=== PATIENT | male | born 1965 | race American Indian/Alaskan Native ===

== ENCOUNTER 2016-10-14 09:41 | Emergency (ER) | payer OTHER ==
[2016-10-14 09:56] VITALS: BP 164/96
--- NOTE | 2016-10-14 10:28 | Emergency Department Report ---
Minor Respiratory - HPI Chief Complaint: Upper Respiratory Infection Stated Complaint: FLU SYMPTOMS Time Seen by Provider: 10/14/16 10:21 Duration: 1 week Severity: moderate Minor Respiratory: Yes Rhinorrhea, Yes Able to Tolerate Fluids, Yes Cough, Yes Sick Contacts, Yes Fever (low grade), No Sore Throat, No Ear Pain, No Hemoptysis , No Chest Pain, No Shortness of Breath Other History: Pt reports cough, congestion x 1 week with low grade fever. No SOB. ED Review of Systems ROS: Stated complaint: FLU SYMPTOMS Other details as noted in HPI Comment: All other systems reviewed and negative Constitutional: denies: chills, fever Eyes: denies: eye pain, eye discharge, vision change ENT: congestion. denies: ear pain, throat pain Respiratory: cough. denies: shortness of breath, wheezing Cardiovascular: denies: chest pain, palpitations Endocrine: no symptoms reported Gastrointestinal: denies: abdominal pain, nausea, diarrhea Genitourinary: denies: urgency, dysuria Musculoskeletal: denies: back pain, joint swelling, arthralgia Skin: denies: rash, lesions Neurological: denies: headache, weakness, paresthesias Psychiatric: denies: anxiety, depression Hematological/Lymphatic: denies: easy bleeding, easy bruising ED Past Medical Hx - Past Medical History Previous Medical History?: No - Surgical History Past Surgical History?: No - Social History Smoking Status: Never Smoker Substance Use Type: Alcohol, Non Opiate Pain, Other - Medications Home Medications: Home Medications Medication Instructions Recorded Confirmed Last Taken Type EPINEPHrine [Epipen 2-Trent] 0.3 mg IM ONCE PRN #2 ml 02/21/16 Unknown Rx Azithromycin [Zithromax] 250 mg PO DAILY #6 tablet 10/14/16 Unknown Rx Guaifenesin/Codeine Phosphate 5 - 10 ml PO Q6HR PRN #120 ml 10/14/16 Unknown Rx [Guaifenesin-Codeine Liquid] predniSONE [Deltasone] 40 mg PO QDAY #10 tab 10/14/16 Unknown Rx Minor Respiratory Exam - Exam General: Vital signs noted. No distress. Alert and acting appropriately. HEENT: Yes Moist Mucous Membranes, No Pharyngeal Erythema, No Pharyngeal Exudates, No Rhinorrhea, No Conjuctival Injection, No Frontal Tenderness, No Maxillary Tenderness Ear: Neither TM Bulge, Neither TM Erythema, Neither EAC Pain, Neither EAC Discharge Neck: Yes Supple, No Adenopathy Lungs: Yes Good Air Exchange, Yes Cough, No Wheezes, No Ronchi, No Stridor, No Labored Respirations, No Retractions, No Use of Accessory Muscles, No Other Abnormal Lung Sounds Heart: Yes Regular, No Murmur Abdomen: Yes Normal Bowel Sounds, No Tenderness, No Peritoneal Signs Skin: No Rash, No Edema Neurologic: Alert and oriented, no deficits. Musculoskeletal: Unremarkable. ED Course Vital Signs 10/14/16 09:53 Temperature 97.9 F Pulse Rate 82 Respiratory 18 Rate Blood Pressure 164/96 O2 Sat by Pulse 100 Oximetry - Reevaluation(s) Reevaluation #1: 10/14/16 10:25 NAD, stable for d/c. ED Medical Decision Making - Medical Decision Making Advise follow up in 3-5 days. Supportive care discussed. - Differential Diagnosis URI, PNA Critical care attestation.: If time is entered above; I have spent that time in minutes in the direct care of this critically ill patient, excluding procedure time. ED Disposition Clinical Impression: Respiratory tract infection Disposition: DISCHARGED TO HOME OR SELFCARE Is pt being admited?: No Condition: Good Instructions: Upper Respiratory Infection (ED) Prescriptions: Azithromycin [Zithromax] 250 mg PO DAILY #6 tablet Guaifenesin/Codeine Phosphate [Guaifenesin-Codeine Liquid] 5 - 10 ml PO Q6HR PRN #120 ml PRN Reason: Cough predniSONE [Deltasone] 40 mg PO QDAY #10 tab Referrals: PRIMARY CARE, [Primary Care Provider] - 3-5 Days Time of Disposition: 10:27
== END 2016-10-14 11:20 | disposition home or self-care (01) ==
LOC: ED 09:41
DX: J06.9 Acute upper respiratory infection, unspecified (principal)
CPT/HCPCS: 99281

== ENCOUNTER 2017-04-20 08:58 | Emergency (ER) | payer OTHER ==
[2017-04-20] MEDS ORDERED: DELTASONE PO ONE (11:47)
--- NOTE | 2017-04-20 11:52 | Emergency Department Report ---
HPI - General Chief Complaint: Allergic Reaction Time Seen by Provider: 04/20/17 11:32 ED Past Medical Hx - Past Medical History Previous Medical History?: No - Surgical History Additional Surgical History: Sinus surgery - Social History Smoking Status: Never Smoker Substance Use Type: Alcohol - Medications Home Medications: Home Medications Medication Instructions Recorded Confirmed Last Taken Type EPINEPHrine [Epipen 2-Trent] 0.3 mg IM ONCE PRN #2 ml 02/21/16 Unknown Rx Azithromycin [Zithromax] 250 mg PO DAILY #6 tablet 10/14/16 Unknown Rx Guaifenesin/Codeine Phosphate 5 - 10 ml PO Q6HR PRN #120 ml 10/14/16 Unknown Rx [Guaifenesin-Codeine Liquid] predniSONE [Deltasone] 40 mg PO QDAY #10 tab 10/14/16 Unknown Rx ED Review of Systems ROS: Stated complaint: ALLERGIC REACTION Other details as noted in HPI Physical Exam - Physical Exam Vital Signs: Vital Signs 04/20/17 09:10 Temperature 98.6 F Pulse Rate 75 Respiratory 16 Rate Blood Pressure 165/101 O2 Sat by Pulse 98 Oximetry ED Course Vital Signs 04/20/17 09:10 Temperature 98.6 F Pulse Rate 75 Respiratory 16 Rate Blood Pressure 165/101 O2 Sat by Pulse 98 Oximetry Critical care attestation.: If time is entered above; I have spent that time in minutes in the direct care of this critically ill patient, excluding procedure time. ED Disposition Condition: Stable Referrals: PRIMARY CARE, [Primary Care Provider] - 3-5 Days
[2017-04-20 12:45] VITALS: BP 147/90
--- NOTE | 2017-04-20 16:05 | Emergency Department Report ---
Entered by KIARA HAMILTON, acting as scribe for YARA WHITE PA. ED Allergic Reaction HPI - General Chief complaint: Allergic Reaction Stated complaint: ALLERGIC REACTION Time Seen by Provider: 04/20/17 11:32 Source: patient Mode of arrival: Ambulatory Limitations: No Limitations - History of Present Illness Initial Comments: 51 y/o male with no significant PMHx presents to the ED c/o an allergic reaction that began 1 day ago. Patient states began to have an allergic reaction yesterday after eating brazil nuts. In the ED, patient reports hives to face with associated itching and throat itching, but he denies facial swelling, throat closing sensation, chest pain, SOB, fever, chills, nausea, and vomiting. Took Benadryl last night with some relief. Patient states he last had an allergic reaction with associated facial and lip swelling 10 years ago secondary to drinking a coconut flavored beverage. NKDA. [place] Complaint: allergic reaction, hives Onset/Timin -: days(s) Symptoms: rash (hives), itching. denies: facial swelling, lip swelling, difficulty swallowing, difficulty breathing, orolingual swelling, hoarseness, syncopy, dizziness, nausea, vomiting, other, abdominal pain Severity: mild Treatment Prior to Arrival: benadryl Previous Allergy History: none - Related Data Previous Rx's Medication Instructions Recorded Last Taken Type EPINEPHrine [Epipen 2-Trent] 0.3 mg IM ONCE PRN #2 ml 02/21/16 Unknown Rx Azithromycin [Zithromax] 250 mg PO DAILY #6 tablet 10/14/16 Unknown Rx Guaifenesin/Codeine Phosphate 5 - 10 ml PO Q6HR PRN #120 ml 10/14/16 Unknown Rx [Guaifenesin-Codeine Liquid] predniSONE [Deltasone] 40 mg PO QDAY #10 tab 10/14/16 Unknown Rx EPINEPHrine (NF) [Epipen (Nf)] 0.3 mg IM ONCE PRN #1 syringekit 04/20/17 Unknown Rx Famotidine [Pepcid] 20 mg PO BID PRN #14 tablet 04/20/17 Unknown Rx Hydroxyzine HCl 25 mg PO Q8H PRN #15 tablet 04/20/17 Unknown Rx Loratadine [Claritin] 10 mg PO DAILY #14 tablet 04/20/17 Unknown Rx predniSONE [Deltasone] 40 mg PO QDAY #10 tab 04/20/17 Unknown Rx Allergies Allergy/AdvReac Type Severity Reaction Status Date / Time No Known Allergies Allergy Unverified 08/29/14 00:56 ED Review of Systems Comment: All other systems reviewed and negative Constitutional: denies: chills, fever Eyes: denies: eye pain, eye discharge, vision change ENT: denies: ear pain, throat pain Respiratory: denies: cough, orthopnea, shortness of breath, SOB with exertion, SOB at rest, stridor, wheezing Cardiovascular: denies: chest pain, palpitations, dyspnea on exertion, orthopnea , edema, syncope, paroxysmal nocturnal dyspnea Endocrine: no symptoms reported Gastrointestinal: denies: abdominal pain, nausea, vomiting, diarrhea Genitourinary: denies: urgency, dysuria Musculoskeletal: denies: back pain, joint swelling, arthralgia Skin: rash (hives). denies: lesions Neurological: denies: headache, weakness, numbness, paresthesias, confusion Psychiatric: denies: anxiety, depression Hematological/Lymphatic: denies: easy bleeding, easy bruising ED Past Medical Hx - Past Medical History Previous Medical History?: No - Surgical History Past Surgical History?: Yes Additional Surgical History: Sinus surgery - Family History Family history: no significant - Social History Smoking Status: Never Smoker Substance Use Type: Alcohol - Medications Home Medications: Home Medications Medication Instructions Recorded Confirmed Last Taken Type EPINEPHrine [Epipen 2-Trent] 0.3 mg IM ONCE PRN #2 ml 02/21/16 Unknown Rx Azithromycin [Zithromax] 250 mg PO DAILY #6 tablet 10/14/16 Unknown Rx Guaifenesin/Codeine Phosphate 5 - 10 ml PO Q6HR PRN #120 ml 10/14/16 Unknown Rx [Guaifenesin-Codeine Liquid] predniSONE [Deltasone] 40 mg PO QDAY #10 tab 10/14/16 Unknown Rx EPINEPHrine (NF) [Epipen (Nf)] 0.3 mg IM ONCE PRN #1 syringekit 04/20/17 Unknown Rx Famotidine [Pepcid] 20 mg PO BID PRN #14 tablet 04/20/17 Unknown Rx Hydroxyzine HCl 25 mg PO Q8H PRN #15 tablet 04/20/17 Unknown Rx Loratadine [Claritin] 10 mg PO DAILY #14 tablet 04/20/17 Unknown Rx predniSONE [Deltasone] 40 mg PO QDAY #10 tab 04/20/17 Unknown Rx ED Physical Exam - General Limitations: No Limitations General appearance: alert, in no apparent distress - Head Head exam: Present: atraumatic, normocephalic - Eye Eye exam: Present: normal appearance, PERRL, EOMI. Absent: scleral icterus, conjunctival injection, nystagmus, periorbital swelling, periorbital tenderness Pupils: Present: normal accommodation - ENT ENT exam: Present: normal exam, normal orophraynx, mucous membranes moist, TM's normal bilaterally, normal external ear exam - Expanded ENT Exam Expanded Ear exam: Present: normal external inspection Mouth exam: Present: normal external inspection, tongue normal. Absent: drooling, trismus, muffled voice, tongue elevation, laceration Teeth exam: Present: normal inspection Throat exam: Positive: normal inspection. Negative: tonsillar erythema, tonsillomegaly, tonsillar exudate, R peritonsillar mass, L peritonsillar mass - Neck Neck exam: Present: normal inspection, full ROM. Absent: tenderness, meningismus, lymphadenopathy, thyromegaly - Respiratory Respiratory exam: Present: normal lung sounds bilaterally. Absent: respiratory distress, wheezes, rales, rhonchi, stridor, accessory muscle use, decreased breath sounds - Cardiovascular Cardiovascular Exam: Present: regular rate, normal rhythm, normal heart sounds. Absent: systolic murmur, diastolic murmur, rubs, gallop - GI/Abdominal GI/Abdominal exam: Present: soft, normal bowel sounds. Absent: distended - Extremities Exam Extremities exam: Present: normal inspection, full ROM, normal capillary refill - Back Exam Back exam: Present: normal inspection, full ROM - Neurological Exam Neurological exam: Present: alert, oriented X3, normal gait - Psychiatric Psychiatric exam: Present: normal affect, normal mood - Skin Skin exam: Present: warm, dry, intact, rash (hives present to face) ED Course Vital Signs 04/20/17 04/20/17 04/20/17 09:10 12:08 12:45 Temperature 98.6 F Pulse Rate 75 74 Respiratory 16 16 Rate Blood Pressure 165/101 168/105 147/90 O2 Sat by Pulse 98 100 Oximetry ED Medical Decision Making - Medical Decision Making A/P: Facial urticaria 1-no oropharyngeal involvement patient has no signs of angioedema. Has had hives since yesterday morning 2-antihistamines, prednisone, EpiPen when necessary patient advised to return to the ED for any shortness of breath wheezing stridor facial tongue or lip swelling 3-f/u w/ primary care ED Disposition Clinical Impression: Urticaria Disposition: TO HOME OR SELFCARE Is pt being admited?: No Does the pt Need Aspirin: No Condition: Stable Instructions: Urticaria (ED) Prescriptions: EPINEPHrine (NF) [Epipen (Nf)] 0.3 mg IM ONCE PRN #1 syringekit PRN Reason: Anaphylaxis Famotidine [Pepcid] 20 mg PO BID PRN #14 tablet PRN Reason: Itching Hydroxyzine HCl 25 mg PO Q8H PRN #15 tablet PRN Reason: Itching Loratadine [Claritin] 10 mg PO DAILY #14 tablet predniSONE [Deltasone] 40 mg PO QDAY #10 tab Referrals: [facility] [Provider Group] - 3-5 Days [facility] [Outside[facility] - 3-5 Days Forms: Work/School Release Form(ED) Time of Disposition: 16:03 This documentation as recorded by the ALFONSO leos JASMINE,accurately reflects the service I personally performed and the decisions made by ,YARA WHITE PA.
== END 2017-04-20 12:51 | disposition home or self-care (01) ==
LOC: ED 08:58
DX: L50.9 Urticaria, unspecified (principal); Y92.9 Unspecified place or not applicable
CPT/HCPCS: 99282; J7512

== ENCOUNTER 2018-10-14 06:16 | Emergency (ER) | payer OTHER ==
[2018-10-14 06:30] VITALS: BP 156/108
[2018-10-14] MEDS ORDERED: DECADRON IM ONE (07:11)
--- NOTE | 2018-10-14 07:17 | Emergency Department Report ---
Minor Respiratory - HPI Chief Complaint: Upper Respiratory Infection Stated Complaint: CONGESTION Time Seen by Provider: 10/14/18 07:11 Duration: 2 Days Pain Location: Other (SINUS) Severity: mild Minor Respiratory: Yes Rhinorrhea, Yes Able to Tolerate Fluids, No Sore Throat, No Ear Pain, No Cough, No Sick Contacts, No Hemoptysis, No Chest Pain, No Shortness of Breath, No Fever Other History: PT IS A 53 YO MALE WHO COMES IN WITH NASAL CONGESTION. HE STATES HE CAN NOT BREATH. HE HAS A LONG STANDING HX OF SINUS PROBLEMS. HE HAS TRIED OVER THE COUNTER MEDS AND THEY HAVE NOT WORKED. ED Review of Systems ROS: Stated complaint: CONGESTION Other details as noted in HPI Comment: All other systems reviewed and negative Constitutional: denies: chills, fever, malaise Eyes: denies: eye pain, eye discharge, vision change ENT: as per HPI, congestion. denies: ear pain, throat pain, dental pain, hearing loss, epistaxis Respiratory: denies: cough Cardiovascular: denies: chest pain Endocrine: denies: intolerance to cold Gastrointestinal: denies: nausea Genitourinary: denies: urgency Musculoskeletal: denies: back pain Skin: denies: lesions Neurological: denies: headache Psychiatric: denies: anxiety Hematological/Lymphatic: denies: easy bleeding ED Past Medical Hx - Past Medical History Previous Medical History?: No - Surgical History Additional Surgical History: Sinus surgery - Social History Smoking Status: Never Smoker Substance Use Type: None - Medications Home Medications: Home Medications Medication Instructions Recorded Confirmed Last Taken Type Azithromycin [Zithromax Z-GURMEET] 250 mg PO DAILY #6 tablet 10/14/18 Unknown Rx Fluticasone [Flonase] 1 spray NS QDAY #1 bottle 10/14/18 Unknown Rx predniSONE [Deltasone] 20 mg PO DAILY #5 tablet 10/14/18 Unknown Rx Minor Respiratory Exam - Exam General: Vital signs noted. No distress. Alert and acting appropriately. HEENT: Yes Moist Mucous Membranes, Yes Rhinorrhea, No Pharyngeal Erythema, No Pharyngeal Exudates, No Conjuctival Injection, No Frontal Tenderness, No Maxil edd Tenderness Ear: Neither TM Bulge, Neither TM Erythema, Neither EAC Pain, Neither EAC Discharge Neck: Yes Supple, No Adenopathy Lungs: Yes Good Air Exchange, No Wheezes, No Ronchi, No Stridor, No Cough, No Labored Respirations, No Retractions, No Use of Accessory Muscles, No Other Abnormal Lung Sounds Heart: Yes Regular, No Murmur Abdomen: Yes Normal Bowel Sounds, No Tenderness, No Peritoneal Signs Skin: No Rash, No Edema Neurologic: Alert and oriented, no deficits. Musculoskeletal: Unremarkable. ED Course Vital Signs 10/14/18 06:25 Temperature 97.6 F Pulse Rate 83 Respiratory 20 Rate Blood Pressure 156/108 O2 Sat by Pulse 99 Oximetry ED Medical Decision Making - Medical Decision Making SIMPLE URTI NO HX HTN TAKING OTC MEDS FOR SINUS NO CP NO SOB NON TOXIC DC HOME W DC POC Critical care attestation.: If time is entered above; I have spent that time in minutes in the direct care of this critically ill patient, excluding procedure time. ED Disposition Clinical Impression: Sinusitis, Elevated blood pressure reading Disposition: DC-01 TO HOME OR SELFCARE Is pt being admited?: No Does the pt Need Aspirin: No Condition: Stable Instructions: Sinusitis (ED) Additional Instructions: HYDRATE WELL WITH WATER MEDS ORDERED DIET AND ACTIVITY TOLERATED FOLLOW UP ENT IF PERSISTS MONITOR YOUR BLOOD PRESSURE- IT WAS ELEVATED TODAY FOLLOW UP WITH PCP IF PERSISTS USE ONLY OVER THE COUNTER MEDS THAT ARE FOR PEOPLE WITH HIGH BLOOD PRESSURE Prescriptions: Azithromycin [Zithromax Z-GURMEET] 250 mg PO DAILY #6 tablet Fluticasone [Flonase] 1 spray NS QDAY #1 bottle predniSONE [Deltasone] 20 mg PO DAILY #5 tablet Referrals: SATYA COY MD [Primary Care Provider] - 3-5 Days Time of Disposition: 07:14
== END 2018-10-14 07:25 | disposition home or self-care (01) ==
LOC: ED 06:16
DX: J32.9 Chronic sinusitis, unspecified (principal); R03.0 Elevated blood-pressure reading, without diagnosis of hypertension
CPT/HCPCS: 96372; 99282; J1100

== ENCOUNTER 2019-02-16 05:42 | Emergency (ER) | payer OTHER ==
[2019-02-16 06:12] VITALS: BP 165/96
[2019-02-16] MEDS ORDERED: DECADRON IM ONE (07:18)
[2019-02-16] MEDS ORDERED: IBUPROFEN PO ONE (07:18)
--- NOTE | 2019-02-16 07:20 | Emergency Department Report ---
Minor Respiratory - HPI Chief Complaint: Upper Respiratory Infection Stated Complaint: SINUS INFECTION Time Seen by Provider: 02/16/19 07:03 Duration: 3 Days Pain Location: Nose Severity: severe Minor Respiratory: Yes Rhinorrhea, Yes Able to Tolerate Fluids, No Sore Throat, No Ear Pain, No Cough, No Sick Contacts, No Hemoptysis, No Chest Pain, No Shortness of Breath, No Fever Other History: 53-year-old -British male complains of stuffy nose and nasal congestion and headache 3 days. Patient reports he has a past medical history of chronic sinusitis and recently had surgery for sinus phase 2 years ago. Patient reports at that time they removed several polyps. Patient reports is up-to-date on all vaccines. Patient reports he has ran out of his Flonase. Patient reports that steroids usually helps with his condition. Patient denies any fever chills no nausea no vomiting. Patient has no other complaints besides a frontal headache. Patient has no known drug allergies currently takes no medications on a daily basis. ED Review of Systems ROS: Stated complaint: SINUS INFECTION Other details as noted in HPI Comment: All other systems reviewed and negative ENT: congestion Neurological: headache ED Past Medical Hx - Past Medical History Previous Medical History?: Yes Additional medical history: chronic sinus - Surgical History Past Surgical History?: Yes Additional Surgical History: Sinus surgery, - Social History Smoking Status: Never Smoker Substance Use Type: None - Medications Home Medications: Home Medications Medication Instructions Recorded Confirmed Last Taken Type Azithromycin [Zithromax Z-GURMEET] 250 mg PO DAILY #6 tablet 02/16/19 Unknown Rx Fluticasone [Flonase] 1 spray NS QDAY #1 bottle 02/16/19 Unknown Rx predniSONE [Deltasone] 20 mg PO DAILY #5 tablet 02/16/19 Unknown Rx Minor Respiratory Exam - Exam General: Vital signs noted. No distress. Alert and acting appropriately. HEENT: Yes Moist Mucous Membranes, Yes Frontal Tenderness, Yes Maxillary Tenderness, No Rhinorrhea Ear: Neither TM Bulge, Neither TM Erythema, Neither EAC Pain, Neither EAC Discharge Neck: Yes Supple, No Adenopathy Lungs: Yes Good Air Exchange, No Wheezes, No Ronchi, No Stridor, No Cough, No Labored Respirations, No Retractions, No Use of Accessory Muscles, No Other Abnormal Lung Sounds Heart: Yes Regular, No Murmur Skin: No Rash, No Edema Neurologic: Alert and oriented, no deficits. Musculoskeletal: Unremarkable. ED Course Vital Signs 02/16/19 06:11 Temperature 98.9 F Pulse Rate 86 Respiratory 20 Rate Blood Pressure 165/96 [Right] O2 Sat by Pulse 98 Oximetry ED Medical Decision Making - Medical Decision Making 53-year-old male comes in for sinusitis complaints. Patient be given dexamethasone 10 mg IM and ibuprofen 800 mg by mouth. Patient be discharged home on prednisone 20 mg daily for 5 days as well as a prescription for Flonase and azithromycin. Critical care attestation.: If time is entered above; I have spent that time in minutes in the direct care of this critically ill patient, excluding procedure time. ED Disposition Clinical Impression: Sinusitis chronic, frontal Disposition: DC-01 TO HOME OR SELFCARE Is pt being admited?: No Does the pt Need Aspirin: No Condition: Stable Instructions: Sinusitis (ED) Additional Instructions: Complete medications as prescribed. Follow-up with her primary care provider if his symptoms persist or gets worse. Prescriptions: predniSONE [Deltasone] 20 mg PO DAILY #5 tablet Fluticasone [Flonase] 1 spray NS QDAY #1 bottle Azithromycin [Zithromax Z-GURMEET] 250 mg PO DAILY #6 tablet Referrals: [facility] [Outside] - 3-5 Days
== END 2019-02-16 07:48 | disposition home or self-care (01) ==
LOC: ED 05:42
DX: J32.1 Chronic frontal sinusitis (principal); Z98.890 Other specified postprocedural states; Z79.899 Other long term (current) drug therapy
CPT/HCPCS: 96372; 99282; J1100

== ENCOUNTER 2019-04-18 07:38 | Emergency (ER) | payer SELFPAY ==
[2019-04-18 07:43] VITALS: BP 120/90
[2019-04-18] MEDS ORDERED: DELTASONE PO ONE (08:23)
--- NOTE | 2019-04-18 08:32 | Emergency Department Report ---
ED General Adult HPI - General Chief complaint: Allergic Reaction Stated complaint: ALLERGIC REACTION Time Seen by Provider: 04/18/19 08:10 Source: patient Mode of arrival: Ambulatory Limitations: No Limitations - History of Present Illness Initial comments: Patient presents to the emergency department with a chief complaint of a rash to left side of his face after eating walnuts this morning at 5 AM. Patient denies any difficulty breathing or shortness of breath. Patient also denies any initial swallowing or eating or drinking. -: Sudden Location: face Severity scale (0 -10): 0 Improves with: none Worsens with: none Associated Symptoms: denies other symptoms Treatments Prior to Arrival: none - Related Data Previous Rx's Medication Instructions Recorded Last Taken Type Azithromycin [Zithromax Z-GURMEET] 250 mg PO DAILY #6 tablet 02/16/19 Unknown Rx Fluticasone [Flonase] 1 spray NS QDAY #1 bottle 02/16/19 Unknown Rx predniSONE [Deltasone] 20 mg PO DAILY #5 tablet 02/16/19 Unknown Rx predniSONE [Deltasone] 20 mg PO DAILY #15 tablet 04/18/19 Unknown Rx Allergies Allergy/AdvReac Type Severity Reaction Status Date / Time No Known Allergies Allergy Unverified 08/29/14 00:56 ED Review of Systems ROS: Stated complaint: ALLERGIC REACTION Other details as noted in HPI Comment: All other systems reviewed and negative Constitutional: denies: chills, fever Eyes: denies: eye pain, eye discharge, vision change ENT: denies: ear pain, throat pain Respiratory: denies: cough, shortness of breath, wheezing Cardiovascular: denies: chest pain, palpitations Endocrine: no symptoms reported Gastrointestinal: denies: abdominal pain, nausea, diarrhea Genitourinary: denies: urgency, dysuria Musculoskeletal: denies: back pain, joint swelling, arthralgia Skin: denies: rash, lesions Neurological: denies: headache, weakness, paresthesias Psychiatric: denies: anxiety, depression Hematological/Lymphatic: denies: easy bleeding, easy bruising ED Past Medical Hx - Past Medical History Previous Medical History?: Yes Additional medical history: chronic sinus - Surgical History Past Surgical History?: Yes Additional Surgical History: Sinus surgery, - Social History Smoking Status: Never Smoker Substance Use Type: Alcohol - Medications Home Medications: Home Medications Medication Instructions Recorded Confirmed Last Taken Type Azithromycin [Zithromax Z-GURMEET] 250 mg PO DAILY #6 tablet 02/16/19 Unknown Rx Fluticasone [Flonase] 1 spray NS QDAY #1 bottle 02/16/19 Unknown Rx predniSONE [Deltasone] 20 mg PO DAILY #5 tablet 02/16/19 Unknown Rx predniSONE [Deltasone] 20 mg PO DAILY #15 tablet 04/18/19 Unknown Rx ED Physical Exam - General Limitations: No Limitations General appearance: alert, in no apparent distress - Head Head exam: Present: atraumatic, normocephalic, other (patient does have erythema and a rash consistent urticaria of the face on the left side) - Eye Eye exam: Present: normal appearance - ENT ENT exam: Present: mucous membranes moist, other (there is no intraoral swelling or inflammation) - Neck Neck exam: Present: normal inspection - Respiratory Respiratory exam: Present: normal lung sounds bilaterally. Absent: respiratory distress - Cardiovascular Cardiovascular Exam: Present: regular rate, normal rhythm. Absent: systolic murmur, diastolic murmur, rubs, gallop - GI/Abdominal GI/Abdominal exam: Present: soft, normal bowel sounds - Rectal Rectal exam: Present: deferred - Extremities Exam Extremities exam: Present: normal inspection - Back Exam Back exam: Present: normal inspection - Neurological Exam Neurological exam: Present: alert, oriented X3, CN II-XII intact. Absent: motor sensory deficit - Psychiatric Psychiatric exam: Present: normal affect, normal mood - Skin Skin exam: Present: warm, dry, intact, normal color. Absent: rash ED Course Vital Signs 04/18/19 07:40 Temperature 98.0 F Pulse Rate 76 Respiratory 16 Rate Blood Pressure 120/90 O2 Sat by Pulse 97 Oximetry Critical care attestation.: If time is entered above; I have spent that time in minutes in the direct care of this critically ill patient, excluding procedure time. ED Disposition Clinical Impression: Allergic reaction Disposition: DC- TO HOME OR SELFCARE Is pt being admited?: No Does the pt Need Aspirin: No Condition: Stable Instructions: Allergies (ED), Food Allergy (ED) Additional Instructions: return if worse Referrals: [facility] [Other] - 3-5 Days [facility], [Provider Group] - 3-5 Days [facility] [Provider Group] - 3-5 Days Time of Disposition: 08:32
== END 2019-04-18 08:46 | disposition home or self-care (01) ==
LOC: ED 07:38
DX: T78.1XXA Other adverse food reactions, not elsewhere classified, initial encounter (principal); Z98.890 Other specified postprocedural states; Z79.899 Other long term (current) drug therapy; X58.XXXA Exposure to other specified factors, initial encounter; Y93.89 Activity, other specified; Y92.89 Other specified places as the place of occurrence of the external cause; Y99.8 Other external cause status
CPT/HCPCS: 99282; J7512

== ENCOUNTER 2019-06-20 01:09 | Emergency (ER) | payer SELFPAY ==
[2019-06-20 01:24] VITALS: BP 155/92
== END 2019-06-20 05:15 | disposition left against medical advice (07) ==
LOC: ED 01:09
DX: R22.1 Localized swelling, mass and lump, neck (principal); Z53.21 Procedure and treatment not carried out due to patient leaving prior to being seen by health care provider

== ENCOUNTER 2020-05-19 15:13 | Emergency (ER) | payer SELFPAY ==
[2020-05-19 15:30] VITALS: BP 191/106
[2020-05-19] MEDS ORDERED: dexAMETHasone 20 MG/5 ML VIAL IM ONE (17:57)
--- NOTE | 2020-05-19 18:02 | Emergency Department Report ---
- General Chief Complaint: Upper Respiratory Infection Stated Complaint: COUGH/RHINITIS Time Seen by Provider: 05/19/20 17:57 Source: patient Mode of arrival: Ambulatory Limitations: No Limitations - History of Present Illness Initial Comments: 54-year-old -Maldivian male presents to the emergency room reporting that he has allergic rhinitis. Patient states he is tried [id number] Zyrtec's and cold medicine but only thing that works is a dose of prednisone. Patient denies any fever chills no chest pain no nausea no vomiting no ear drainage no ear pain no eye drainage. [facility] . MD Complaint: rhinorrhea, nasal congestion, other (Has post nasal drip) Onset/Timin -: days(s) Severity scale (0 -10): 5 Consistency: constant Improves With: nothing Worsens With: nothing Context: other (Change of seasons) Associated Symptoms: rhinorrhea, nasal congestion, cough. denies: fever, chills, myalgias, diaphoresis, headache, sore throat, chest pain, shortness of breath, abdominal pain, nausea, vomiting, diarrhea, weight loss, epistaxis, hoarseness, ear pain - Related Data Previous Rx's Medication Instructions Recorded Last Taken Type Azithromycin [Zithromax Z-GURMEET] 250 mg PO DAILY #6 tablet 02/16/19 Unknown Rx Fluticasone [Flonase] 1 spray NS QDAY #1 bottle 02/16/19 Unknown Rx predniSONE [Deltasone] 20 mg PO DAILY #5 tablet 02/16/19 Unknown Rx predniSONE [Deltasone] 20 mg PO DAILY #15 tablet 04/18/19 Unknown Rx Ibuprofen [Motrin 800 MG tab] 800 mg PO Q8HR PRN #21 tablet 02/05/20 Unknown Rx methOCARBAMOL [Robaxin TAB] 1,500 mg PO TID PRN #30 tab 02/05/20 Unknown Rx Allergies Allergy/AdvReac Type Severity Reaction Status Date / Time peanut Allergy Rash Verified 06/20/19 01:23 ED Review of Systems ROS: Stated complaint: COUGH/RHINITIS Other details as noted in HPI Comment: All other systems reviewed and negative ED Past Medical Hx - Past Medical History Previous Medical History?: No Additional medical history: chronic sinus - Surgical History Past Surgical History?: Yes Additional Surgical History: Sinus surgery, poylps removed - Social History Smoking Status: Never Smoker Substance Use Type: None - Medications Home Medications: Home Medications Medication Instructions Recorded Confirmed Last Taken Type Azithromycin [Zithromax Z-GURMEET] 250 mg PO DAILY #6 tablet 02/16/19 Unknown Rx Fluticasone [Flonase] 1 spray NS QDAY #1 bottle 02/16/19 Unknown Rx predniSONE [Deltasone] 20 mg PO DAILY #5 tablet 02/16/19 Unknown Rx predniSONE [Deltasone] 20 mg PO DAILY #15 tablet 04/18/19 Unknown Rx Ibuprofen [Motrin 800 MG tab] 800 mg PO Q8HR PRN #21 tablet 02/05/20 Unknown Rx methOCARBAMOL [Robaxin TAB] 1,500 mg PO TID PRN #30 tab 02/05/20 Unknown Rx ED Physical Exam - General Limitations: No Limitations General appearance: alert, in no apparent distress - Head Head exam: Present: atraumatic, normocephalic - Eye Eye exam: Present: normal appearance - ENT ENT exam: Present: mucous membranes moist, other (Bilateral nare has hypertrophic turbinates) - Neck Neck exam: Present: normal inspection - Respiratory Respiratory exam: Present: normal lung sounds bilaterally. Absent: respiratory distress - Cardiovascular Cardiovascular Exam: Present: regular rate, normal rhythm. Absent: systolic murmur, diastolic murmur, rubs, gallop - GI/Abdominal GI/Abdominal exam: Present: soft, normal bowel sounds - Rectal Rectal exam: Present: deferred - Extremities Exam Extremities exam: Present: normal inspection - Back Exam Back exam: Present: normal inspection - Neurological Exam Neurological exam: Present: alert, oriented X3 - Psychiatric Psychiatric exam: Present: normal affect, normal mood - Skin Skin exam: Present: warm, dry, intact, normal color. Absent: rash ED Course Vital Signs 05/19/20 15:29 Temperature 97.2 F L Pulse Rate 81 Respiratory 16 Rate Blood Pressure 191/106 [Right] O2 Sat by Pulse 96 Oximetry ED Medical Decision Making - Medical Decision Making 54-year-old -Maldivian male presents to the emergency room reporting that he has allergic rhinitis. Patient states he is tried [id number] Zyrtec's and cold medicine but only thing that works is a dose of prednisone. Patient denies any fever chills no chest pain no nausea no vomiting no ear drainage no ear pain no eye drainage. Patient reports he is followed by the [facility] and his doctors only in on . Patient will be given a dexamethasone 10 mg IM injection. Discussed with patient increase his water intake he can try [id number] Claritin or Eva and to follow-up with his primary care provider at the [facility]. Critical care attestation.: If time is entered above; I have spent that time in minutes in the direct care of this critically ill patient, excluding procedure time. ED Disposition Clinical Impression: Allergic rhinitis Disposition: DC- TO HOME OR SELFCARE Is pt being admited?: No Does the pt Need Aspirin: No Condition: Stable Instructions: Allergic Rhinitis (ED) Additional Instructions: You can also try [id number] Eva Xyzal or Claritin sometimes every other season you need to change your antihistamines. Follow-up with your [facility] doctor increase your water intake. Referrals: [facility] [Outside] - 3-5 Days
== END 2020-05-19 18:12 | disposition home or self-care (01) ==
LOC: ED 15:13
DX: J30.9 Allergic rhinitis, unspecified (principal); Z79.899 Other long term (current) drug therapy; Z98.890 Other specified postprocedural states; Z91.010 Allergy to peanuts
CPT/HCPCS: 96372; 99282; J1100

== ENCOUNTER 2020-05-26 18:15 | Emergency (ER) | payer SELFPAY ==
[2020-05-26 19:37] VITALS: BP 155/102
--- NOTE | 2020-05-26 19:59 | Emergency Department Report ---
ED General Adult HPI - General Chief complaint: Headache Stated complaint: SINUS Time Seen by Provider: 05/26/20 19:18 Source: patient Mode of arrival: Ambulatory Limitations: No Limitations - History of Present Illness Initial comments: Patient is a 54-year-old male presents emergency room with a sinus infection that began 4 days ago. He states that he has associated green mucus nasal discharge, postnasal drip, headache, sinus pressure. He states that he gets recurrent sinus infections once a year around this time. He states that he has a cough secondary to the postnasal drip. He denies any fever, nausea, vomiting, diarrhea, chest pain, shortness of breath, abdominal pain. He denies any sick contacts. He denies any recent travel. He denies any recent antibiotics. He denies any other past medical history. He denies any allergies to medications. - Related Data Previous Rx's Medication Instructions Recorded Last Taken Type Azithromycin [Zithromax Z-GURMEET] 250 mg PO DAILY #6 tablet 02/16/19 Unknown Rx Fluticasone [Flonase] 1 spray NS QDAY #1 bottle 02/16/19 Unknown Rx predniSONE [Deltasone] 20 mg PO DAILY #5 tablet 02/16/19 Unknown Rx predniSONE [Deltasone] 20 mg PO DAILY #15 tablet 04/18/19 Unknown Rx Ibuprofen [Motrin 800 MG tab] 800 mg PO Q8HR PRN #21 tablet 02/05/20 Unknown Rx methOCARBAMOL [Robaxin TAB] 1,500 mg PO TID PRN #30 tab 02/05/20 Unknown Rx Amoxicillin/Potassium Clav 1 each PO BID 10 Days #20 tablet 05/26/20 Unknown Rx [Augmentin 875-125 Tablet] Fluticasone [Flonase] 1 spray NS QDAY #1 bottle 05/26/20 Unknown Rx guaiFENesin ER [Mucinex ER] 600 mg PO BID #14 tablet.er 05/26/20 Unknown Rx Allergies Allergy/AdvReac Type Severity Reaction Status Date / Time peanut Allergy Rash Verified 06/20/19 01:23 ED Review of Systems ROS: Stated complaint: SINUS Other details as noted in HPI Comment: All other systems reviewed and negative ED Past Medical Hx - Past Medical History Previous Medical History?: Yes Additional medical history: chronic sinus with dx of 5 polyps in sinuses - Surgical History Additional Surgical History: Sinus surgery, poylps removed - Social History Smoking Status: Never Smoker Substance Use Type: None - Medications Home Medications: Home Medications Medication Instructions Recorded Confirmed Last Taken Type Azithromycin [Zithromax Z-GURMEET] 250 mg PO DAILY #6 tablet 02/16/19 Unknown Rx Fluticasone [Flonase] 1 spray NS QDAY #1 bottle 02/16/19 Unknown Rx predniSONE [Deltasone] 20 mg PO DAILY #5 tablet 02/16/19 Unknown Rx predniSONE [Deltasone] 20 mg PO DAILY #15 tablet 04/18/19 Unknown Rx Ibuprofen [Motrin 800 MG tab] 800 mg PO Q8HR PRN #21 tablet 02/05/20 Unknown Rx methOCARBAMOL [Robaxin TAB] 1,500 mg PO TID PRN #30 tab 02/05/20 Unknown Rx Amoxicillin/Potassium Clav 1 each PO BID 10 Days #20 tablet 05/26/20 Unknown Rx [Augmentin 875-125 Tablet] Fluticasone [Flonase] 1 spray NS QDAY #1 bottle 05/26/20 Unknown Rx guaiFENesin ER [Mucinex ER] 600 mg PO BID #14 tablet.er 05/26/20 Unknown Rx ED Physical Exam - General Limitations: No Limitations General appearance: alert, in no apparent distress - Head Head exam: Present: atraumatic, normocephalic - Eye Eye exam: Present: normal appearance - ENT ENT exam: Present: normal orophraynx, mucous membranes moist, TM's normal bilaterally, normal external ear exam, other (edematous nasal turbinates, there is mucus nasal drainage, maxillary sinus ttp bilaterally) - Respiratory Respiratory exam: Present: normal lung sounds bilaterally. Absent: respiratory distress, wheezes, rales, rhonchi, stridor, chest wall tenderness, accessory muscle use, decreased breath sounds, prolonged expiratory - Cardiovascular Cardiovascular Exam: Present: regular rate, normal rhythm, normal heart sounds. Absent: systolic murmur, diastolic murmur, rubs, gallop - Neurological Exam Neurological exam: Present: alert, oriented X3 - Psychiatric Psychiatric exam: Present: normal affect, normal mood - Skin Skin exam: Present: warm, dry, intact ED Course Vital Signs 05/26/20 05/26/20 18:27 19:37 Temperature 98.5 F 98.9 F Pulse Rate 85 80 Respiratory 18 18 Rate Blood Pressure 194/99 Blood Pressure 155/102 [Right] O2 Sat by Pulse 96 99 Oximetry ED Medical Decision Making - Medical Decision Making Patient is a 54-year-old male presents emergency room with a sinus infection that began 4 days ago. He states that he has associated green mucus nasal discharge, postnasal drip, headache, sinus pressure. He states that he gets recurrent sinus infections once a year around this time. He states that he has a cough secondary to the postnasal drip. He denies any fever, nausea, vomiting, diarrhea, chest pain, shortness of breath, abdominal pain. He denies any sick contacts. He denies any recent travel. He denies any recent antibiotics. He denies any other past medical history. He denies any allergies to medications. initial vitals with elevated BP, which improved upon repeat without intervention, advised pt to follow up with PCP. on exam: edematous nasal turbinates, there is mucus nasal drainage, maxillary sinus ttp bilaterally. examination appears consistent with sinusitis. pt given prescription for augmentin, flonase, and mucinex. advised pt Please use medication as prescribed. Increase your water intake. Follow-up with your primary care doctor. Return to the emergency room for any new or worsening symptoms. Critical care attestation.: If time is entered above; I have spent that time in minutes in the direct care of this critically ill patient, excluding procedure time. ED Disposition Clinical Impression: Acute sinusitis Qualifiers: Sinusitis location: maxillary Recurrence: recurrent Qualified Code(s): J01.01 - Acute recurrent maxillary sinusitis Disposition: - TO HOME OR SELFCARE Is pt being admited?: No Does the pt Need Aspirin: No Condition: Stable Instructions: Sinusitis (ED) Additional Instructions: Please use medication as prescribed. Increase your water intake. Follow-up with your primary care doctor. Return to the emergency room for any new or worsening symptoms. Prescriptions: Amoxicillin/Potassium Clav [Augmentin 875-125 Tablet] 1 each PO BID 10 Days #20 tablet Fluticasone [Flonase] 1 spray NS QDAY #1 bottle guaiFENesin ER [Mucinex ER] 600 mg PO BID #14 tablet.er Referrals: PRIMARY CARE, [Primary Care Provider] - 2-3 Days Time of Disposition: 19:59 Print Language: ARMENIAN
== END 2020-05-26 20:08 | disposition home or self-care (01) ==
LOC: ED 18:15
DX: J01.01 Acute recurrent maxillary sinusitis (principal); Z91.010 Allergy to peanuts; Z79.899 Other long term (current) drug therapy; Z98.890 Other specified postprocedural states
CPT/HCPCS: 99282

== ENCOUNTER 2020-07-28 10:41 | Emergency (ER) | payer SELFPAY ==
[2020-07-28 11:26] VITALS: BP 176/108
--- NOTE | 2020-07-28 12:27 | Emergency Department Report ---
- General Chief Complaint: Upper Respiratory Infection Stated Complaint: FEVER/COUGH Time Seen by Provider: 07/28/20 12:17 Source: patient Mode of arrival: Ambulatory Limitations: No Limitations - History of Present Illness Initial Comments: pt is a 54 yo male who presents to the ED with c/o fever of 100.2 that began last night. he states he has an occasional dry cough. he states he took tylenol last night and it resolved. he has not taken anything today. he denies any n/v/d, SOB, sore throat, ear pain, rhinorrhea, CP, abd pain. PMHx sinusitis. allergy to peanuts. he denies known sick contacts or recent travel. - Related Data Previous Rx's Medication Instructions Recorded Last Taken Type Azithromycin [Zithromax Z-GURMEET] 250 mg PO DAILY #6 tablet 02/16/19 Unknown Rx Fluticasone [Flonase] 1 spray NS QDAY #1 bottle 02/16/19 Unknown Rx predniSONE [Deltasone] 20 mg PO DAILY #5 tablet 02/16/19 Unknown Rx predniSONE [Deltasone] 20 mg PO DAILY #15 tablet 04/18/19 Unknown Rx Ibuprofen [Motrin 800 MG tab] 800 mg PO Q8HR PRN #21 tablet 02/05/20 Unknown Rx methOCARBAMOL [Robaxin TAB] 1,500 mg PO TID PRN #30 tab 02/05/20 Unknown Rx Amoxicillin/Potassium Clav 1 each PO BID 10 Days #20 tablet 05/26/20 Unknown Rx [Augmentin 875-125 Tablet] Fluticasone [Flonase] 1 spray NS QDAY #1 bottle 05/26/20 Unknown Rx guaiFENesin ER [Mucinex ER] 600 mg PO BID #14 tablet.er 05/26/20 Unknown Rx Allergies Allergy/AdvReac Type Severity Reaction Status Date / Time peanut Allergy Rash Verified 06/20/19 01:23 ED Review of Systems ROS: Stated complaint: FEVER/COUGH Other details as noted in HPI Comment: All other systems reviewed and negative ED Past Medical Hx - Past Medical History Previous Medical History?: Yes Additional medical history: chronic sinus with dx of 5 polyps in sinuses - Surgical History Past Surgical History?: Yes Additional Surgical History: Sinus surgery, poylps removed - Social History Smoking Status: Never Smoker Substance Use Type: None - Medications Home Medications: Home Medications Medication Instructions Recorded Confirmed Last Taken Type Azithromycin [Zithromax Z-GURMEET] 250 mg PO DAILY #6 tablet 02/16/19 Unknown Rx Fluticasone [Flonase] 1 spray NS QDAY #1 bottle 02/16/19 Unknown Rx predniSONE [Deltasone] 20 mg PO DAILY #5 tablet 02/16/19 Unknown Rx predniSONE [Deltasone] 20 mg PO DAILY #15 tablet 04/18/19 Unknown Rx Ibuprofen [Motrin 800 MG tab] 800 mg PO Q8HR PRN #21 tablet 02/05/20 Unknown Rx methOCARBAMOL [Robaxin TAB] 1,500 mg PO TID PRN #30 tab 02/05/20 Unknown Rx Amoxicillin/Potassium Clav 1 each PO BID 10 Days #20 tablet 05/26/20 Unknown Rx [Augmentin 875-125 Tablet] Fluticasone [Flonase] 1 spray NS QDAY #1 bottle 05/26/20 Unknown Rx guaiFENesin ER [Mucinex ER] 600 mg PO BID #14 tablet.er 05/26/20 Unknown Rx ED Physical Exam - General Limitations: No Limitations General appearance: alert, in no apparent distress - Head Head exam: Present: atraumatic, normocephalic - Eye Eye exam: Present: normal appearance - ENT ENT exam: Present: normal orophraynx, mucous membranes moist, TM's normal bilaterally, normal external ear exam, other (no sinus ttp bilaterally) - Neck Neck exam: Present: full ROM. Absent: meningismus - Respiratory Respiratory exam: Present: normal lung sounds bilaterally. Absent: respiratory distress, wheezes, rales, rhonchi, stridor, chest wall tenderness, accessory muscle use, decreased breath sounds, prolonged expiratory - Cardiovascular Cardiovascular Exam: Present: regular rate, normal rhythm, normal heart sounds. Absent: systolic murmur, diastolic murmur, rubs, gallop - Neurological Exam Neurological exam: Present: alert, oriented X3 - Psychiatric Psychiatric exam: Present: normal affect, normal mood - Skin Skin exam: Present: warm, dry, intact ED Course Vital Signs 07/28/20 11:26 Temperature 98.3 F Pulse Rate 81 Respiratory 20 Rate Blood Pressure 176/108 [Right] O2 Sat by Pulse 95 Oximetry ED Medical Decision Making - Medical Decision Making pt is a 54 yo male who presents to the ED with c/o fever of 100.2 that began last night. he states he has an occasional dry cough. he states he took tylenol last night and it resolved. he has not taken anything today. he denies any n/v/d, SOB, sore throat, ear pain, rhinorrhea, CP, abd pain. PMHx sinusitis. allergy to peanuts. he denies known sick contacts or recent travel. Vitals with elevated blood pressure, otherwise stable, patient states that occasionally when he goes to doctors offices his blood pressure is elevated but states that is normal at home, advised patient to keep a blood pressure log and take this to the primary care doctor, eat a low-sodium diet, increase water intake, incorporate 30 to 60 minutes of daily exercise. Patient is not having any symptoms related to his blood pressure, the up-to-date medical literature does not recommend emergently lowering asymptomatic blood pressure. Patient is afebrile in the emergency department, he has no hypoxia, no tachycardia. Breath signs are clear bilaterally, no wheezing, no rales, no rhonchi, normal oropharynx, normal TMs and canals bilaterally. He has no clinical signs of bacterial pneumonia or bacterial bronchitis. He has no clinical signs of dehydration. Symptoms most likely related to viral URI. Patient is presenting with the symptoms during COVID-19 pandemic, discussed COVID-19 with patient, discussed strict return precautions, discussed outpatient testing, discussed self quarantine. Patient does not meet hospital criteria for COVID-19 hospital testing or for admission. Advised patient Please increase your fluid intake over the next several days. May take Tylenol as needed for fever or body aches. May take hypo-qaz-vxpitbh cold symptom relief medication such as Mucinex or TheraFlu. Follow-up with a primary care doctor for reexamination. Return to emergency room immediately for any new or worsening symptoms including but not limited to difficulty breathing, shortness of breath, severe chest pain, unable to tolerate by mouth intake, etc. Please self quarantine for 10 days from the onset of your symptoms. Please do not go out in public. If you are around others at home please wear a mask. If you need to cough or sneeze please do so in a napkin and immediately throw it away and immediately wash your hands. Wash your hands frequently. Wipe everything down. Recommend for you to get COVID-1 9 testing, may have this done at primary care doctor, health department, [facility] testing center. Please follow-up with a primary care doctor regarding elevation in your blood pressure during today's visit. Please eat a low-sodium/low salt diet. Increase your water intake. Incorporate 30 to 60 minutes of daily exercise. Please keep a blood pressure log and take your blood pressure 3 times a day and take this to the primary care doctor. Return to emergency room for any new or worsening symptoms. - Differential Diagnosis URI, PNA, viral syndrome, influenza, COVID 19, sinusitis Critical care attestation.: If time is entered above; I have spent that time in minutes in the direct care of this critically ill patient, excluding procedure time. ED Disposition Clinical Impression: Viral URI, Elevated blood pressure reading Disposition: MED SCREENING EXAM-LEFT Is pt being admited?: No Does the pt Need Aspirin: No Condition: Stable Instructions: Viral Respiratory Infection, [id number], Low-Sodium Eating Plan Additional Instructions: Please increase your fluid intake over the next several days. May take Tylenol as needed for fever or body aches. May take fpqa-hnh-qspyndo cold symptom relief medication such as Mucinex or TheraFlu. Follow-up with a primary care doctor for reexamination. Return to emergency room immediately for any new or worsening symptoms including but not limited to difficulty breathing, shortness of breath, severe chest pain, unable to tolerate by mouth intake, etc. Please self quarantine for 10 days from the onset of your symptoms. Please do not go out in public. If you are around others at home please wear a mask. If you need to cough or sneeze please do so in a napkin and immediately throw it away and immediately wash your hands. Wash your hands frequently. Wipe everything down. Recommend for you to get COVID-19 testing, may have this done at primary care doctor, health department, [facility] testing [facility]. Please follow-up with a primary care doctor regarding elevation in your blood pressure during today's visit. Please eat a low-sodium/low salt diet. Increase your water intake. Incorporate 30 to 60 minutes of daily exercise. Please keep a blood pressure log and take your blood pressure 3 times a day and take this to the primary care doctor. Return to emergency room for any new or worsening symptoms. Referrals: your, primary care doctor [Other] - 2-3 Days Time of Disposition: 12:29 Print Language: CITIZEN OF [place]
== END 2020-07-28 12:31 | disposition left against medical advice (07) ==
LOC: ED 10:41
DX: R50.9 Fever, unspecified (principal); Z53.21 Procedure and treatment not carried out due to patient leaving prior to being seen by health care provider

== ENCOUNTER 2021-01-14 11:44 | Outpatient (CLI) | payer OTHER ==
--- NOTE | 2021-01-14 13:31 | XRay Report ---
RIGHT HIP 3 VIEWS INDICATION / CLINICAL INFORMATION: RIGHT HIP PAIN. COMPARISON: None available. FINDINGS: Mild degenerative change. No other significant skeletal abnormality Signer Name: Rupesh Guadalupe MD FACAkbar Signed: 01/14/2021 1:27 PM Workstation Name: [id number]
--- NOTE | 2021-01-14 13:32 | XRay Report ---
LEFT ANKLE 2 VIEWS INDICATION / CLINICAL INFORMATION: LEFT ANKLE PAIN. COMPARISON: None available. FINDINGS: Small plantar calcaneal spur. No other significant skeletal abnormality Signer Name: Rupesh Guadalupe MD FACAkbar Signed: 01/14/2021 1:28 PM Workstation Name: [id number]
--- NOTE | 2021-01-14 13:32 | XRay Report ---
LEFT KNEE 2 VIEWS INDICATION / CLINICAL INFORMATION: LEFT KNEE PAIN. COMPARISON: None available. FINDINGS: Mild medial joint space narrowing. No other significant skeletal abnormality Signer Name: Rupesh Guadalupe MD FACAkbar Signed: 01/14/2021 1:27 PM Workstation Name: [id number]
--- NOTE | 2021-01-14 13:33 | XRay Report ---
RIGHT SHOULDER 3 VIEWS INDICATION / CLINICAL INFORMATION: RIGHT SHOULDER PAIN. COMPARISON: None available. FINDINGS: No significant skeletal abnormality Signer Name: Rupesh Guadalupe MD FACR Signed: 01/14/2021 1:29 PM Workstation Name: [id number]
--- NOTE | 2021-01-14 13:33 | XRay Report ---
LUMBAR SPINE 5 VIEWS INDICATION / CLINICAL INFORMATION: BACK PAIN. COMPARISON: None available. FINDINGS: Mild diffuse degenerative change. No other significant skeletal abnormality. Alignment is normal. Signer Name: Rupesh Guadalupe MD FACR Signed: 01/14/2021 1:28 PM Workstation Name: [id number]
--- NOTE | 2021-01-14 13:34 | XRay Report ---
CERVICAL SPINE 4 VIEWS INDICATION / CLINICAL INFORMATION: BACL PAIN. COMPARISON: None available. FINDINGS: Moderate degenerative change from C4 to C6. No other significant skeletal abnormality. Alignment is n ormal. Signer Name: Rupesh Guadalupe MD FACR Signed: 01/14/2021 1:29 PM Workstation Name: [id number]
== END 2021-01-14 11:45 | disposition home or self-care (01) ==
LOC: XRAY 11:44
PROVIDERS: ATTEND Internal Medicine
DX: M16.11 Unilateral primary osteoarthritis, right hip (principal); M47.812 Spondylosis without myelopathy or radiculopathy, cervical region; M25.511 Pain in right shoulder; M47.816 Spondylosis without myelopathy or radiculopathy, lumbar region; M77.32 Calcaneal spur, left foot; M17.12 Unilateral primary osteoarthritis, left knee
CPT/HCPCS: 72040; 72110

== ENCOUNTER 2021-03-22 00:42 | Emergency (ER) | payer OTHER ==
[2021-03-22 00:59] VITALS: BP 156/99
--- NOTE | 2021-03-22 02:34 | Emergency Department Report ---
- General Chief Complaint: Upper Respiratory Infection Stated Complaint: AMALIA,HEADACHE RUNNY NOSE Source: patient Mode of arrival: Ambulatory Limitations: No Limitations - History of Present Illness Initial Comments: Patient is a 55-year-old -Burkin[place] male with no past medical history presents to the ED with complaint of acute onset persistent frontal sinus pressure, frontal headache, nasal and sinus congestion, persistent cough with thick yellowish-green mucus for the last 5 days worse in the last 2 days. Patient states that his symptoms have been persistent especially worse at night when he lays down to sleep. Patient states that no one else at home is had similar symptoms. Patient denies fever, chills, nausea, vomiting, dizziness, syncope, sore throat, nausea and vomiting, diarrhea, abdominal pain, chest pain or shortness of breath. MD Complaint: cough, rhinorrhea, nasal congestion, sinus pain -: Sudden Severity: severe Severity scale (0 -10): 7 Quality: sharp, aching Consistency: constant Improves With: nothing Worsens With: nothing Associated Symptoms: headache, rhinorrhea, nasal congestion, cough. denies: fever, chills, myalgias, diaphoresis, sore throat, chest pain, shortness of breath, abdominal pain, nausea, vomiting, diarrhea, dysuria, rash, confusion, right sweats, weight loss, epistaxis, hoarseness, ear pain Treatments Prior to Arrival: none - Related Data Previous Rx's Medication Instructions Recorded Last Taken Type Azithromycin [Zithromax Z-GURMEET] 250 mg PO DAILY #6 tablet 02/16/19 Unknown Rx Fluticasone [Flonase] 1 spray NS QDAY #1 bottle 02/16/19 Unknown Rx predniSONE [Deltasone] 20 mg PO DAILY #15 tablet 04/18/19 Unknown Rx methOCARBAMOL [Robaxin TAB] 1,500 mg PO TID PRN #30 tab 02/05/20 Unknown Rx Fluticasone [Flonase] 1 spray NS QDAY #1 bottle 05/26/20 Unknown Rx guaiFENesin ER [Mucinex ER] 600 mg PO BID #14 tablet.er 05/26/20 Unknown Rx Famotidine [Pepcid] 40 mg PO QHS #14 tablet 10/29/20 Unknown Rx Ondansetron [Zofran Odt] 4 mg PO Q8HR PRN #10 tab.rapdis 10/29/20 Unknown Rx Amoxicillin/Potassium Clav 1 each PO BID 10 Days #20 tablet 03/22/21 Unknown Rx [Augmentin 875-125 Tablet] Benzonatate [Tessalon Perles] 100 mg PO Q8HR #30 capsule 03/22/21 Unknown Rx Cetirizine HCl [Zyrtec 10mg tab] 10 mg PO DAILY #30 tablet 03/22/21 Unknown Rx Ibuprofen [Motrin 800 MG tab] 800 mg PO Q8HR PRN #21 tablet 03/22/21 Unknown Rx predniSONE [Deltasone] 40 mg PO DAILY #10 tablet 03/22/21 Unknown Rx Allergies Allergy/AdvReac Type Severity Reaction Status Date / Time peanut Allergy Rash Verified 02/26/21 09:53 ED Review of Systems ROS: Stated complaint: AMALIA,HEADACHE RUNNY NOSE Other details as noted in HPI Constitutional: denies: chills, fever Eyes: denies: eye pain, eye discharge, vision change ENT: congestion, other (frontal sinus pressure and pain). denies: ear pain, throat pain Respiratory: cough. denies: shortness of breath, wheezing Cardiovascular: denies: chest pain, palpitations Endocrine: no symptoms reported Gastrointestinal: denies: abdominal pain, nausea, vomiting, diarrhea Genitourinary: denies: urgency, dysuria Musculoskeletal: denies: back pain, joint swelling, arthralgia Skin: denies: rash, lesions Neurological: headache. denies: weakness, paresthesias Psychiatric: denies: anxiety, depression Hematological/Lymphatic: denies: easy bleeding, easy bruising ED Past Medical Hx - Past Medical History Previous Medical History?: Yes Additional medical history: chronic sinus with dx of 5 polyps in sinuses - Surgical History Past Surgical History?: Yes Additional Surgical History: Sinus surgery, poylps removed - Social History Smoking Status: Never Smoker - Medications Home Medications: Home Medications Medication Instructions Recorded Confirmed Last Taken Type Azithromycin [Zithromax Z-GURMEET] 250 mg PO DAILY #6 tablet 02/16/19 Unknown Rx Fluticasone [Flonase] 1 spray NS QDAY #1 bottle 02/16/19 Unknown Rx predniSONE [Deltasone] 20 mg PO DAILY #15 tablet 04/18/19 Unknown Rx methOCARBAMOL [Robaxin TAB] 1,500 mg PO TID PRN #30 tab 02/05/20 Unknown Rx Fluticasone [Flonase] 1 spray NS QDAY #1 bottle 05/26/20 Unknown Rx guaiFENesin ER [Mucinex ER] 600 mg PO BID #14 tablet.er 05/26/20 Unknown Rx Famotidine [Pepcid] 40 mg PO QHS #14 tablet 10/29/20 Unknown Rx Ondansetron [Zofran Odt] 4 mg PO Q8HR PRN #10 tab.rapdis 10/29/20 Unknown Rx Amoxicillin/Potassium Clav 1 each PO BID 10 Days #20 tablet 03/22/21 Unknown Rx [Augmentin 875-125 Tablet] Benzonatate [Tessalon Perles] 100 mg PO Q8HR #30 capsule 03/22/21 Unknown Rx Cetirizine HCl [Zyrtec 10mg tab] 10 mg PO DAILY #30 tablet 03/22/21 Unknown Rx Ibuprofen [Motrin 800 MG tab] 800 mg PO Q8HR PRN #21 tablet 03/22/21 Unknown Rx predniSONE [Deltasone] 40 mg PO DAILY #10 tablet 03/22/21 Unknown Rx ED Physical Exam - General Limitations: No Limitations General appearance: alert, in no apparent distress - Head Head exam: Present: atraumatic, normocephalic, normal inspection - Eye Eye exam: Present: normal appearance, PERRL, EOMI Pupils: Present: normal accommodation - ENT ENT exam: Present: normal orophraynx, mucous membranes moist, TM's normal bilaterally, normal external ear exam, other (Grossly congested nasal passages; palpable frontal and maxillary sinus tenderness) - Neck Neck exam: Present: normal inspection, full ROM. Absent: tenderness - Respiratory Respiratory exam: Present: normal lung sounds bilaterally. Absent: respiratory distress, wheezes, rales, rhonchi, stridor, chest wall tenderness, accessory muscle use, decreased breath sounds - Cardiovascular Cardiovascular Exam: Present: regular rate, normal rhythm, normal heart sounds. Absent: systolic murmur, diastolic murmur, rubs, gallop - GI/Abdominal GI/Abdominal exam: Present: soft, normal bowel sounds. Absent: tenderness, guarding, rebound, hyperactive bowel sounds, hypoactive bowel sounds, organomegaly - Extremities Exam Extremities exam: Present: normal inspection, full ROM, normal capillary refill - Back Exam Back exam: Present: normal inspection, full ROM. Absent: tenderness, CVA tenderness (R), CVA tenderness (L), muscle spasm, paraspinal tenderness, vertebral tenderness - Neurological Exam Neurological exam: Present: alert, oriented X3, CN II-XII intact, normal gait, reflexes normal - Psychiatric Psychiatric exam: Present: normal affect, normal mood - Skin Skin exam: Present: warm, dry, intact, normal color. Absent: rash ED Course Vital Signs 03/22/21 00:58 Temperature 98.2 F Pulse Rate 86 Respiratory 16 Rate Blood Pressure 156/99 [Right] O2 Sat by Pulse 97 Oximetry ED Medical Decision Making - Medical Decision Making This is a 55-year-old -[place] male with no past medical history presents to the ED with complaint of acute onset persistent frontal sinus pressure, frontal headache, nasal and sinus congestion, persistent cough with thick yellowish-green mucus for the last 5 days worse in the last 2 days. Panfilo jacques states that his symptoms have been persistent especially worse at night when he lays down to sleep. Patient states that no one else at home is had similar symptoms. In the ED, patient is alert and oriented x3 and is not in any distress. Based on the history and physical exam findings, the patient will discharge home on medications and advised to follow-up with his primary care physician in 7 to 10 days for reevaluation or return to the ED immediately if symptoms get worse. - Differential Diagnosis Sinusitis; bronchitis; URI; Pneumonia Critical care attestation.: If time is entered above; I have spent that time in minutes in the direct care of this critically ill patient, excluding procedure time. ED Disposition Clinical Impression: Acute upper respiratory infection Acute frontal sinusitis Qualifiers: Recurrence: non-recurrent Qualified Code(s): J01.10 - Acute frontal sinusitis, unspecified Acute bronchitis Qualifiers: Bronchitis organism: unspecified organism Qualified Code(s): J20.9 - Acute bronchitis, unspecified Disposition: DC-01 TO HOME OR SELFCARE Is pt being admited?: No Does the pt Need Aspirin: No Condition: Stable Instructions: Acute Bronchitis (ED), Sinusitis, Adult, [id number], Upper Respiratory Infection, Adult, [id number], Cough, Adult, [id number], Acute Bronchitis, Adult, [id number] Additional Instructions: Take medication with food, drink plenty of fluids and follow-up with your primary care physician in 7 to 10 days for reevaluation. Return to the ED immediately if symptoms get worse. Prescriptions: Amoxicillin/Potassium Clav [Augmentin 875-125 Tablet] 1 each PO BID 10 Days #20 tablet predniSONE [Deltasone] 40 mg PO DAILY #10 tablet Ibuprofen [Motrin 800 MG tab] 800 mg PO Q8HR PRN #21 tablet PRN Reason: pain Benzonatate [Tessalon Perles] 100 mg PO Q8HR #30 capsule Cetirizine HCl [Zyrtec 10mg tab] 10 mg PO DAILY #30 tablet Referrals: [facility] [Provider Group] - 7-10 days Time of Disposition: 02:31 Print Language: GREEK
== END 2021-03-22 03:15 | disposition home or self-care (01) ==
LOC: ED 00:42
DX: J06.9 Acute upper respiratory infection, unspecified (principal); J01.10 Acute frontal sinusitis, unspecified; J02.9 Acute pharyngitis, unspecified; Z91.010 Allergy to peanuts
CPT/HCPCS: 99281

== ENCOUNTER 2021-06-10 15:27 | Emergency (ER) | payer OTHER ==
[2021-06-10 16:53] LABS: Basophils % (Auto) 0.7 % (0.0-1.8); Eosinophils % (Auto) 1.3 % (0.0-4.3); Lymphocytes # (Auto) 1.1 K/mm3 (1.2-5.4); Lymphocytes % (Auto) 29.2 % (13.4-35.0); Mean Corpuscular HGB Conc 36 % (32-34); Mean Corpuscular Volume 92 fl (84-94); Monocytes # (Auto) 0.3 K/mm3 (0.0-0.8); Monocytes % (Auto) 7.2 % (0.0-7.3); Platelet Count 305 K/mm3 (140-440); Red Blood Count 4.59 M/mm3 (3.65-5.03); Red Cell Distribution Width 14.8 % (13.2-15.2)
[2021-06-10 16:54] LABS: Hematocrit 42.2 % (35.5-45.6); Hemoglobin 15.2 gm/dl (11.8-15.2)
[2021-06-10 17:12] LABS: Alanine Aminotransferase 18 units/L (7-56); Albumin 4.6 g/dL (3.9-5); BUN/Creatinine Ratio 8; Blood Urea Nitrogen 7 mg/dL (9-20); Calcium 9.7 mg/dL (8.4-10.2); Hemolysis Index 10
--- NOTE | 2021-06-10 17:23 | Cat Scan Report ---
CT head/brain wo con INDICATION: headache, dizziness, near syncope. TECHNIQUE: Routine CT head. All CT scans at this location are performed using CT dose reduction for A KELLIE by means of automated exposure control. COMPARISON: None. FINDINGS: Intracranial: Capellan-white matter differentiation is maintained. No intracranial hemorrhage. No extra a xial collection. No hydrocephalus. No herniation. Sinuses: Prior sinus surgery with persistent moderate mucosal thickening predominantly involving the ethmoid air cells and sphenoid sinuses. Mastoid air cells are essentially clear. Orbits: Globes are i ntact. Calvarium: No acute fracture. IMPRESSION: 1. No acute intracranial abnormality. 2. Sinus disease. Signer Name: Dawson Joyce MD Signed: 06/10/2021 5:19 PM Workstation Name: [id number]
--- NOTE | 2021-06-10 17:48 | Emergency Department Report ---
ED General Adult HPI - General Chief complaint: Headache Stated complaint: NECK PAIN, ARM PAIN, DIZZINESS Time Seen by Provider: 06/10/21 16:20 Source: patient Mode of arrival: Ambulatory Limitations: No Limitations - History of Present Illness Initial comments: Patient is a 55-year-old male presents emergency room with complaints of headache described as a pressure that initially occurred 4 days ago. He states he then began to feel lightheadedness and dizziness which lasted for approximately 45 seconds. He states he had the same symptoms today. He states he is also been having some right-sided neck pain that radiates down his right arm. He denies any chest pain, shortness of breath, vision changes, numbness, tingling, weakness, speech disturbance, gait disturbance. He denies any past medical history. He denies any personal or family cardiac history. Patient denies any allergies to medications. He is a never smoker. - Related Data Previous Rx's Medication Instructions Recorded Last Taken Type Azithromycin [Zithromax Z-GURMEET] 250 mg PO DAILY #6 tablet 02/16/19 Unknown Rx Fluticasone [Flonase] 1 spray NS QDAY #1 bottle 02/16/19 Unknown Rx predniSONE [Deltasone] 20 mg PO DAILY #15 tablet 04/18/19 Unknown Rx methOCARBAMOL [Robaxin TAB] 1,500 mg PO TID PRN #30 tab 02/05/20 Unknown Rx Fluticasone [Flonase] 1 spray NS QDAY #1 bottle 05/26/20 Unknown Rx guaiFENesin ER [Mucinex ER] 600 mg PO BID #14 tablet.er 05/26/20 Unknown Rx Famotidine [Pepcid] 40 mg PO QHS #14 tablet 10/29/20 Unknown Rx Ondansetron [Zofran Odt] 4 mg PO Q8HR PRN #10 tab.rapdis 10/29/20 Unknown Rx Amoxicillin/Potassium Clav 1 each PO BID 10 Days #20 tablet 03/22/21 Unknown Rx [Augmentin 875-125 Tablet] Benzonatate [Tessalon Perles] 100 mg PO Q8HR #30 capsule 03/22/21 Unknown Rx Cetirizine HCl [Zyrtec 10mg tab] 10 mg PO DAILY #30 tablet 03/22/21 Unknown Rx Ibuprofen [Motrin 800 MG tab] 800 mg PO Q8HR PRN #21 tablet 03/22/21 Unknown Rx predniSONE [Deltasone] 40 mg PO DAILY #10 tablet 03/22/21 Unknown Rx Amoxicillin/Potassium Clav 1 each PO BID 10 Days #20 tablet 06/10/21 Unknown Rx [Augmentin 875-125 Tablet] Fluticasone [Flonase] 1 spray NS QDAY #1 bottle 06/10/21 Unknown Rx amLODIPine 5 mg PO DAILY #30 tab 06/10/21 Unknown Rx Allergies Allergy/AdvReac Type Severity Reaction Status Date / Time peanut Allergy Rash Verified 02/26/21 09:53 ED Review of Systems ROS: Stated complaint: NECK PAIN, ARM PAIN, DIZZINESS Other details as noted in HPI Comment: All other systems reviewed and negative ED Past Medical Hx - Past Medical History Previous Medical History?: No Additional medical history: chronic sinus with dx of 5 polyps in sinuses - Surgical History Past Surgical History?: No Additional Surgical History: Sinus surgery, poylps removed - Social History Smoking Status: Never Smoker Substance Use Type: None - Medications Home Medications: Home Medications Medication Instructions Recorded Confirmed Last Taken Type Azithromycin [Zithromax Z-GURMEET] 250 mg PO DAILY #6 tablet 02/16/19 Unknown Rx Fluticasone [Flonase] 1 spray NS QDAY #1 bottle 02/16/19 Unknown Rx predniSONE [Deltasone] 20 mg PO DAILY #15 tablet 04/18/19 Unknown Rx methOCARBAMOL [Robaxin TAB] 1,500 mg PO TID PRN #30 tab 02/05/20 Unknown Rx Fluticasone [Flonase] 1 spray NS QDAY #1 bottle 05/26/20 Unknown Rx guaiFENesin ER [Mucinex ER] 600 mg PO BID #14 tablet.er 05/26/20 Unknown Rx Famotidine [Pepcid] 40 mg PO QHS #14 tablet 10/29/20 Unknown Rx Ondansetron [Zofran Odt] 4 mg PO Q8HR PRN #10 tab.rapdis 10/29/20 Unknown Rx Amoxicillin/Potassium Clav 1 each PO BID 10 Days #20 tablet 03/22/21 Unknown Rx [Augmentin 875-125 Tablet] Benzonatate [Tessalon Perles] 100 mg PO Q8HR #30 capsule 03/22/21 Unknown Rx Cetirizine HCl [Zyrtec 10mg tab] 10 mg PO DAILY #30 tablet 03/22/21 Unknown Rx Ibuprofen [Motrin 800 MG tab] 800 mg PO Q8HR PRN #21 tablet 03/22/21 Unknown Rx predniSONE [Deltasone] 40 mg PO DAILY #10 tablet 03/22/21 Unknown Rx Amoxicillin/Potassium Clav 1 each PO BID 10 Days #20 tablet 06/10/21 Unknown Rx [Augmentin 875-125 Tablet] Fluticasone [Flonase] 1 spray NS QDAY #1 bottle 06/10/21 Unknown Rx amLODIPine 5 mg PO DAILY #30 tab 06/10/21 Unknown Rx ED Physical Exam - General Limitations: No Limitations General appearance: alert, in no apparent distress - Head Head exam: Present: atraumatic, normocephalic - Eye Eye exam: Present: normal appearance, PERRL, EOMI. Absent: periorbital swelling, periorbital tenderness - ENT ENT exam: Present: mucous membranes moist - Neck Neck exam: Present: normal inspection, full ROM, other (no carotid bruit or thrill ). Absent: tenderness, meningismus - Respiratory Respiratory exam: Present: normal lung sounds bilaterally. Absent: respiratory distress, wheezes, rales, rhonchi, stridor, chest wall tenderness, accessory muscle use, decreased breath sounds, prolonged expiratory - Cardiovascular Cardiovascular Exam: Present: regular rate, normal rhythm, normal heart sounds. Absent: systolic murmur, diastolic murmur, rubs, gallop - Neurological Exam Neurological exam: Present: alert, oriented X3, CN II-XII intact, normal gait. Absent: motor sensory deficit - Psychiatric Psychiatric exam: Present: normal affect, normal mood - Skin Skin exam: Present: warm, dry, intact ED Course Vital Signs 06/10/21 06/10/21 06/10/21 15:55 17:39 18:22 Temperature 98.0 F 98.1 F 98.4 F Pulse Rate 91 H 85 76 Respiratory 18 18 16 Rate Blood Pressure 159/89 147/86 Blood Pressure 179/109 [Right] O2 Sat by Pulse 98 99 98 Oximetry ED Medical Decision Making - Lab Data Result diagrams: 06/10/21 16:35 06/10/21 16:35 Labs 06/10/21 06/10/21 16:35 16:35 WBC 3.9 L RBC 4.59 Hgb 15.2 Hct 42.2 MCV 92 MCH 33 H MCHC 36 H RDW 14.8 Plt Count 305 Lymph % (Auto) 29.2 [place] % (Auto) 7.2 Eos % (Auto) 1.3 Baso % (Auto) 0.7 Lymph # (Auto) 1.1 L [place] # (Auto) 0.3 Eos # (Auto) 0.0 Baso # (Auto) 0.0 Seg Neutrophils % 61.6 Seg Neutrophils # 2.4 Sodium 138 Potassium 4.2 Chloride 104.6 Carbon Dioxide 23 Anion Gap 15 BUN 7 L Creatinine 0.9 Estimated GFR > 60 BUN/Creatinine Ratio 8 Glucose 111 H Calcium 9.7 Total Bilirubin 1.40 H AST 25 ALT 18 Alkaline Phosphatase 67 Troponin T < 0.010 Total Protein 8.2 Albumin 4.6 Albumin/Globulin Ratio 1.3 Vital Signs 06/10/21 06/10/21 06/10/21 15:55 17:39 18:22 Temperature 98.0 F 98.1 F 98.4 F Pulse Rate 91 H 85 76 Respiratory 18 18 16 Rate Blood Pressure 159/89 147/86 Blood Pressure 179/109 [Right] O2 Sat by Pulse 98 99 98 Oximetry - EKG Data EKG shows normal: sinus rhythm, axis, intervals, ST-T waves Rate: normal - EKG Data 06/10/21 17:49 Left atrial enlargement - Radiology Data Radiology results: report reviewed Ordering Physician: MONIQUE BELL Date of Service: 06/10/21 Procedure(s): CT head/brain wo con Accession Number(s): [id number] cc: MONIQUE BELL CT head/brain wo con INDICATION: headache, dizziness, near syncope. TECHNIQUE: Routine CT head. All CT scans at this location are performed using CT dose reduction for ALARA by means of automated exposure control. COMPARISON: None. FINDINGS: Intracranial: Capellan-white matter differentiation is maintained. No intracranial hemorrhage. No extra axial collection. No hydrocephalus. No herniation. Sinuses: Prior sinus surgery with persistent moderate mucosal thickening predominantly involving the ethmoid air cells and sphenoid sinuses. Mastoid air cells are essentially clear. Orbits: Globes are intact. Calvarium: No acute fracture. IMPRESSION: 1. No acute intracranial abnormality. 2. Sinus disease. Signer Name: Dawson Joyce MD Signed: 06/10/2021 5:19 PM Workstation Name: [id number] Transcribed By: MONISHA Dictated By: Dawson Joyce MD Electronically Authenticated By: Dawson Joyce MD Signed Date/Time: 06/10/211718 DD/ 15 TD/TT: - Medical Decision Making Patient is a 55-year-old male presents emergency room with complaints of headache described as a pressure that initially occurred 4 days ago. He states he then began to feel lightheadedness and dizziness which lasted for approximately 45 seconds. He states he had the same symptoms today. He states he is also been having some right-sided neck pain that radiates down his right arm. He denies any chest pain, shortness of breath, vision changes, numbness, tingling, weakness, speech disturbance, gait disturbance. He denies any past medical history. He denies any personal or family cardiac history. Patient denies any allergies to medications. He is a never smoker. Initial vitals with elevated blood pressure which improved upon repeat but blood pressure remains elevated. No focal neuro deficits on exam. CT head 1. No acute intracranial abnormality. 2. Sinus disease. Labs are stable. EKG with left atrial enlargement, otherwise normal. Discussed case with Dr. Markham, ER attending who advised symptoms could likely be related to his elevated blood pressure/sinus disease. Discussed all results with patient and answered questions. Given prescription for medications. Advised patient Please take m edication as prescribed. Follow-up with your primary care doctor. Eat a low- sodium diet. Incorporate 30 to 60 minutes of daily exercise. Keep a blood pressure log. Return to emergency room for any new or worsening symptoms. Critical care attestation.: If time is entered above; I have spent that time in minutes in the direct care of this critically ill patient, excluding procedure time. ED Disposition Clinical Impression: Elevated blood pressure reading, Lightheaded Sinusitis Qualifiers: Sinusitis location: sphenoidal Chronicity: acute Recurrence: non-recurrent Qualified Code(s): J01.30 - Acute sphenoidal sinusitis, unspecified Headache Qualifiers: Headache type: unspecified Headache chronicity pattern: acute headache Intractability: not intractable Qualified Code(s): R51.9 - Headache, unspecified Disposition: 01 HOME / SELF CARE / HOMELESS Is pt being admited?: No Does the pt Need Aspirin: No Condition: Stable Instructions: Sinusitis, Adult, [id number], Hypertension, Adult Additional Instructions: Please take medication as prescribed. Follow-up with your primary care doctor. Eat a low-sodium diet. Incorporate 30 to 60 minutes of daily exercise. Keep a blood pressure log. Return to emergency room for any new or worsening symptoms. Prescriptions: amLODIPine 5 mg PO DAILY #30 tab Amoxicillin/Potassium Clav [Augmentin 875-125 Tablet] 1 each PO BID 10 Days #20 tablet Fluticasone [Flonase] 1 spray NS QDAY #1 bottle Referrals: PRIMARY CARE, [Primary Care Provider] - 2-3 Days Time of Disposition: 17:50 Print Language: NEPALI
[2021-06-10 18:25] VITALS: BP 147/86
--- NOTE | 2021-06-11 11:54 | Electrocardiograph Report ---
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
== END 2021-06-10 18:38 | disposition home or self-care (01) ==
LOC: ED 15:27
DX: R51.9 Headache, unspecified (principal); R03.0 Elevated blood-pressure reading, without diagnosis of hypertension; R42 Dizziness and giddiness; J32.9 Chronic sinusitis, unspecified; M54.2 Cervicalgia; M79.601 Pain in right arm; Z98.890 Other specified postprocedural states; Z91.010 Allergy to peanuts
CPT/HCPCS: 36415; 70450; 80053; 84484; 85025; 93005; 99284

== ENCOUNTER 2021-10-03 06:15 | Emergency (ER) | payer OTHER ==
[2021-10-03 06:36] VITALS: BP 168/74
[2021-10-03] MEDS ORDERED: ASPIRIN 325 MG TAB PO ONE (06:36)
[2021-10-03] MEDS ORDERED: ACETAMINOPHEN 500 MG TAB PO ONE (06:53)
--- NOTE | 2021-10-03 06:58 | Emergency Department Report ---
ED Chest Pain HPI - General Chief Complaint: Chest Pain Stated Complaint: RIGHT SIDE CHEST PAIN PUI?: No Time Seen by Provider: 10/03/21 06:45 Source: patient Mode of arrival: Ambulatory Limitations: No Limitations - History of Present Illness Initial Comments: CC: chest pain HPI: This is a 56 yo male with hx nasal polyps and allergic rhinitis who presents with right sided chest pain for 3 days. Dull ache which radiates to h is shoulder blade. 7/10 in severity. No change with movement or inspiration. Denies fever, cough, leg pain. Denies recent travel or strenuous activity. He wants to make sure that he does not have an embolism. Mr. Vela receives annual physical exams by his PCP in [place] every June. He has been vaccinated against COVID-19. Father of lung cancer in his 80's. Mother had medical issues related to obesity. Siblings are healthy. MD Complaint: chest pain -: Gradual, days(s) (3 days persistent right-sided chest pain) Onset: during rest Pain Location: right chest Pain Radiation: back Severity: moderate Severity scale (0 -10): 7 Quality: dull Consistency: constant Improves With: nothing Worsens With: nothing Treatments Prior to Arrival: aspirin (Patient took aspirin at home) - Related Data Previous Rx's Medication Instructions Recorded Last Taken Type Azithromycin [Zithromax Z-GURMEET] 250 mg PO DAILY #6 tablet 02/16/19 Unknown Rx Fluticasone [Flonase] 1 spray NS QDAY #1 bottle 02/16/19 Unknown Rx predniSONE [Deltasone] 20 mg PO DAILY #15 tablet 04/18/19 Unknown Rx methOCARBAMOL [Robaxin TAB] 1,500 mg PO TID PRN #30 tab 02/05/20 Unknown Rx Fluticasone [Flonase] 1 spray NS QDAY #1 bottle 05/26/20 Unknown Rx guaiFENesin ER [Mucinex ER] 600 mg PO BID #14 tablet.er 05/26/20 Unknown Rx Famotidine [Pepcid] 40 mg PO QHS #14 tablet 10/29/20 Unknown Rx Ondansetron [Zofran Odt] 4 mg PO Q8HR PRN #10 tab.rapdis 10/29/20 Unknown Rx Amoxicillin/Potassium Clav 1 each PO BID 10 Days #20 tablet 03/22/21 Unknown Rx [Augmentin 875-125 Tablet] Benzonatate [Tessalon Perles] 100 mg PO Q8HR #30 capsule 03/22/21 Unknown Rx Cetirizine HCl [Zyrtec 10mg tab] 10 mg PO DAILY #30 tablet 03/22/21 Unknown Rx Ibuprofen [Motrin 800 MG tab] 800 mg PO Q8HR PRN #21 tablet 03/22/21 Unknown Rx predniSONE [Deltasone] 40 mg PO DAILY #10 tablet 03/22/21 Unknown Rx Amoxicillin/Potassium Clav 1 each PO BID 10 Days #20 tablet 06/10/21 Unknown Rx [Augmentin 875-125 Tablet] Fluticasone [Flonase] 1 spray NS QDAY #1 bottle 06/10/21 Unknown Rx amLODIPine 5 mg PO DAILY #30 tab 06/10/21 Unknown Rx Allergies Allergy/AdvReac Type Severity Reaction Status Date / Time peanut Allergy Rash Verified 02/26/21 09:53 Heart Score - HEART Score History: Slightly suspicious EKG: Normal Age: 45-65 Risk factors: No known risk factors Troponin: < normal limit HEART Score: 1 - EKG Read Time Time EKG Completed: 06:24 EKG Read Time: 06:24 - Critical Actions Critical Actions: 0-3 pts:0.9-1.7%risk of adverse cardiac event.Candidate for discharge ED Review of Systems ROS: Stated complaint: RIGHT SIDE CHEST PAIN Other details as noted in HPI Comment: All other systems reviewed and negative Constitutional: denies: chills, fever, malaise Respiratory: denies: cough, shortness of breath Cardiovascular: chest pain Gastrointestinal: denies: abdominal pain, nausea, vomiting Musculoskeletal: back pain ED Past Medical Hx - Past Medical History Previous Medical History?: Yes Additional medical history: chronic sinus with dx of 5 polyps in sinuses - Surgical History Past Surgical History?: Yes Additional Surgical History: Sinus surgery, poylps removed - Family History Family history: other (Lung cancer) - Social History Smoking Status: Never Smoker Substance Use Type: None - Medications Home Medications: Home Medications Medication Instructions Recorded Confirmed Last Taken Type Azithromycin [Zithromax Z-GURMEET] 250 mg PO DAILY #6 tablet 02/16/19 Unknown Rx Fluticasone [Flonase] 1 spray NS QDAY #1 bottle 02/16/19 Unknown Rx predniSONE [Deltasone] 20 mg PO DAILY #15 tablet 04/18/19 Unknown Rx methOCARBAMOL [Robaxin TAB] 1,500 mg PO TID PRN #30 tab 02/05/20 Unknown Rx Fluticasone [Flonase] 1 spray NS QDAY #1 bottle 05/26/20 Unknown Rx guaiFENesin ER [Mucinex ER] 600 mg PO BID #14 tablet.er 05/26/20 Unknown Rx Famotidine [Pepcid] 40 mg PO QHS #14 tablet 10/29/20 Unknown Rx Ondansetron [Zofran Odt] 4 mg PO Q8HR PRN #10 tab.rapdis 10/29/20 Unknown Rx Amoxicillin/Potassium Clav 1 each PO BID 10 Days #20 tablet 03/22/21 Unknown Rx [Augmentin 875-125 Tablet] Benzonatate [Tessalon Perles] 100 mg PO Q8HR #30 capsule 03/22/21 Unknown Rx Cetirizine HCl [Zyrtec 10mg tab] 10 mg PO DAILY #30 tablet 03/22/21 Unknown Rx Ibuprofen [Motrin 800 MG tab] 800 mg PO Q8HR PRN #21 tablet 03/22/21 Unknown Rx predniSONE [Deltasone] 40 mg PO DAILY #10 tablet 03/22/21 Unknown Rx Amoxicillin/Potassium Clav 1 each PO BID 10 Days #20 tablet 06/10/21 Unknown Rx [Augmentin 875-125 Tablet] Fluticasone [Flonase] 1 spray NS QDAY #1 bottle 06/10/21 Unknown Rx amLODIPine 5 mg PO DAILY #30 tab 06/10/21 Unknown Rx ED Physical Exam - General Limitations: No Limitations General appearance: alert, in no apparent distress, other (Appears comfortable, no acute distress) - Head Head exam: Present: atraumatic, normocephalic - Eye Eye exam: Present: normal appearance - ENT ENT exam: Present: mucous membranes moist - Neck Neck exam: Present: normal inspection, full ROM - Respiratory Respiratory exam: Present: normal lung sounds bilaterally. Absent: respiratory distress, wheezes, rales, rhonchi - Cardiovascular Cardiovascular Exam: Present: regular rate, normal rhythm, normal heart sounds. Absent: systolic murmur, diastolic murmur, rubs, gallop - GI/Abdominal GI/Abdominal exam: Present: soft, normal bowel sounds. Absent: distended, tenderness, guarding, rebound - Rectal Rectal exam: Present: deferred - Extremities Exam Extremities exam: Present: normal inspection - Neurological Exam Neurological exam: Present: alert, oriented X3 - Psychiatric Psychiatric exam: Present: normal affect, normal mood - Skin Skin exam: Present: warm, dry, intact, normal color. Absent: rash ED Course Vital Signs 10/03/21 06:31 Temperature 98.5 F Pulse Rate 74 Respiratory 18 Rate Blood Pressure 168/74 O2 Sat by Pulse 100 Oximetry BRAD score - Brad Score Age > 65: (0) No Aspirin use within the Past 7 Days: (0) No 3 or more CAD Risk Factors: (0) No 2 or more Angina events in past 24 hrs: (0) No Known CAD with more than 50% Stenosis: (0) No Elevated Cardiac Markers: (0) No ST Deviation Greater than 0.5mm: (0) No BRAD Score: 0 ED Medical Decision Making - Lab Data Result diagrams: 10/03/21 06:44 10/03/21 06:44 - EKG Data -: EKG Interpreted by Sc EKG shows normal: sinus rhythm, axis, intervals, QRS complexes, ST-T waves Rate: normal - EKG Data Interpretation: normal EKG 10/03/21 07:00 EKG obtained 0700 EKG interpreted by ia Rate 75 bpm normal sinus rhythm normal rate normal axis normal intervals no ST elevation no ST-T signs of ischemia normal EKG - Radiology Data Radiology results: report reviewed Patient Name: GINO VELA Gender: Male Date of : 1965 Referring Provider: FRANKY MIRANDA Organization: [facility] Accession Number: [id number] Requested Date: October 03, 2021 06:36 Report Status: Final Requested Procedure: 1 Procedure Description: XR chest routine 2V Modality: XR Findings Reporting MD: Tanner Stanley Dictation Time: October 03, 2021 06:07 Willower: Not available Alterations Workroom Clerk Date: CHEST 2 VIEWS INDICATION / CLINICAL INFORMATION: chest. COMPARISON: None available. FINDINGS: SUPPORT DEVICES: None. HEART / MEDIASTINUM: No significant abnormality. LUNGS / PLEURA: No significant pulmonary or pleural abnormality. No pneumothorax. ADDITIONAL FINDINGS: No significant additional findings. IMPRESSION: 1. No active cardiopulmonary disease. Signer Name: Tanner Stanley II, MD Signed: 10/03/2021 6:07 AM Workstation Name: [id number] - Medical Decision Making 1. Chest pain highly atypical for ACS. Heart score 1. Troponin x1 -. Chest radiograph negative for infiltrate or pneumothorax. I provided referral to clinical coder. I also faxed to cardiology request to [facility] for outpatient cardiac testing. D-dimer negative. Patient given reassurance but he has very low risk of " embolism". CBC chemistry within normal limits. Chest radiograph no acute findings. Differential diagnosis includes chest wall pain pleurisy. Recommended ibuprofen as needed. 2. Elevated blood pressure: Recommended repeat blood pressure check by primary care physician. Also recommended blood pressure check at local grocery store to monitor. Critical care attestation.: If time is entered above; I have spent that time in minutes in the direct care of this critically ill patient, excluding procedure time. ED Disposition Clinical Impression: Chest wall muscle strain Disposition: 01 HOME / SELF CARE / HOMELESS Is pt being admited?: No Does the pt Need Aspirin: No Condition: Stable Instructions: Nonspecific Chest Pain, Adult, [id number] Referrals: PROSPER PALENCIA RN [Primary Care Provider] - 3-5 Days OBED KUMAR MD [Staff Physician] - 3-5 Days
[2021-10-03 07:10] LABS: Basophils % (Auto) 0.8 % (0.0-1.8); Eosinophils # (Auto) 0.5 K/mm3 (0.0-0.4); Eosinophils % (Auto) 8.9 % (0.0-4.3); Hematocrit 40.7 % (35.5-45.6); Hemoglobin 14.2 gm/dl (11.8-15.2); Lymphocytes # (Auto) 2.3 K/mm3 (1.2-5.4); Mean Corpuscular HGB Conc 35 % (32-34); Mean Corpuscular Volume 93 fl (84-94); Monocytes # (Auto) 0.6 K/mm3 (0.0-0.8); Monocytes % (Auto) 10.9 % (0.0-7.3); Platelet Count 225 K/mm3 (140-440); Red Blood Count 4.39 M/mm3 (3.65-5.03); Red Cell Distribution Width 15.1 % (13.2-15.2)
--- NOTE | 2021-10-03 07:12 | XRay Report ---
CHEST 2 VIEWS INDICATION / CLINICAL INFORMATION: chest. COMPARISON: None available. FINDINGS: SUPPORT DEVICES: None. HEART / MEDIASTINUM: No significant abnormality. LUNGS / PLEURA: No significant pulmonary or pleural abnormality. No pneumothorax. ADDITIONAL FINDINGS: No significant additional findings. IMPRESSION: 1. No active cardiopulmonary disease. Signer Name: Tanner Stanley II, MD Signed: 10/03/2021 7:07 AM Workstation Name: [id number]
[2021-10-03 07:35] LABS: Alanine Aminotransferase 14 units/L (7-56); Albumin 4.1 g/dL (3.9-5); BUN/Creatinine Ratio 9; Blood Urea Nitrogen 7 mg/dL (9-20); Calcium 8.5 mg/dL (8.4-10.2); Hemolysis Index 8
--- NOTE | 2021-10-04 09:55 | Electrocardiograph Report ---
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
== END 2021-10-03 08:15 | disposition home or self-care (01) ==
LOC: ED 06:15
DX: S29.011A Strain of muscle and tendon of front wall of thorax, initial encounter (principal); Z98.890 Other specified postprocedural states; Z91.010 Allergy to peanuts; X58.XXXA Exposure to other specified factors, initial encounter; Y93.89 Activity, other specified; Y92.89 Other specified places as the place of occurrence of the external cause; Y99.8 Other external cause status
CPT/HCPCS: 36415; 71046; 80053; 84484; 85025; 85379; 93005; 93010; 99284